=== PATIENT | female | born 1990 | race Caucasian/White ===

== ENCOUNTER 2017-03-10 17:29 | Emergency (ER) | payer OTHER ==
[~2017-03-10] VITALS: Ht 182.9 cm; Wt 144.7 kg
[2017-03-10 19:51] VITALS: BP 143/83
== END 2017-03-10 19:51 | disposition home or self-care (01) ==
LOC: ED 17:29
DX: L23.3 Allergic contact dermatitis due to drugs in contact with skin (principal); L03.211 Cellulitis of face; T49.4X5A Adverse effect of keratolytics, keratoplastics, and other hair treatment drugs and preparations, initial encounter; Y92.89 Other specified places as the place of occurrence of the external cause

== ENCOUNTER 2017-03-19 22:22 | Emergency (ER) | payer OTHER ==
[2017-03-20 02:40] LABS: PLATELET COUNT 358 x10^3mcL (130-400); RED CELL DISTRIBUTION WIDTH 12.2 % (11.5-14.5)
[2017-03-20 02:44] LABS: BASOPHIL % 2.2 % (0-2)
[2017-03-20 02:57] LABS: CARBON DIOXIDE 25.7 mmol/L (21-32); CHLORIDE SERUM 104 mmol/L (98-107); CREATININE SERUM 0.7 mg/dL (0.6-1.0); GFR1 > 60 mL/min; GLUCOSE SERUM 92 mg/dL (74-106); POTASSIUM SERUM 3.6 mmol/L (3.5-5.1); SODIUM SERUM 139 mmol/L (136-145)
[2017-03-20 03:01] LABS: ALBUMIN 3.7 g/dL (3.4-5.0); ALKALINE PHOSPHATASE 84 U/L (46-116); ALT/SGPT 26 U/L (14-59); AST/SGOT 15 U/L (15-37); BILIRUBIN TOTAL 0.22 mg/dL (0.20-1.00); LIPASE 144 IU/L (73-393); TOTAL PROTEIN, SERUM 7.9 g/dL (6.4-8.2)
[2017-03-20 03:21] VITALS: BP 132/72
== END 2017-03-20 03:21 | disposition home or self-care (01) ==
LOC: ED 22:22
PROVIDERS: Emergency Medicine
DX: R19.7 Diarrhea, unspecified (principal); R10.84 Generalized abdominal pain; R11.0 Nausea; Z79.1 Long term (current) use of non-steroidal anti-inflammatories (NSAID); Z79.899 Other long term (current) drug therapy
CPT/HCPCS: 36415; J0500; Q0162

== ENCOUNTER 2017-05-22 15:32 | Emergency (ER) | payer OTHER ==
[2017-05-22 18:00] VITALS: BP 128/75
== END 2017-05-22 18:00 | disposition home or self-care (01) ==
LOC: ED 15:32
DX: J02.9 Acute pharyngitis, unspecified (principal)
CPT/HCPCS: J1100

== ENCOUNTER 2017-10-23 08:00 | Emergency (ER) | payer OTHER ==
[~2017-10-23] VITALS: Ht 182.9 cm; Wt 137.4 kg
[2017-10-23 09:30] VITALS: BP 130/76
== END 2017-10-23 09:30 | disposition home or self-care (01) ==
LOC: ED 08:00
DX: J03.90 Acute tonsillitis, unspecified (principal); E66.9 Obesity, unspecified
CPT/HCPCS: J0696; J1100; J2001

== ENCOUNTER 2017-11-06 18:59 | Emergency (ER) | payer OTHER ==
[~2017-11-06] VITALS: Ht 182.9 cm; Wt 138.3 kg
[2017-11-06 19:10] VITALS: BP 133/86; Ht 182.9 cm; Wt 138.3 kg
== END 2017-11-06 20:45 | disposition home or self-care (01) ==
LOC: ED 18:59
DX: J06.9 Acute upper respiratory infection, unspecified (principal)
CPT/HCPCS: J7613; J7644

== ENCOUNTER 2017-11-17 08:14 | Emergency (ER) | payer OTHER ==
[~2017-11-17] VITALS: Ht 182.9 cm; Wt 140.2 kg
[2017-11-17 08:20] VITALS: Ht 182.9 cm; Wt 140.2 kg
[2017-11-17 08:52] LABS: BASOPHIL % 0.4 % (0-2); RED CELL DISTRIBUTION WIDTH 12.6 % (11.5-14.5)
[2017-11-17 08:53] LABS: PLATELET COUNT 436 x10^3mcL (130-400)
[2017-11-17 09:04] LABS: CALCIUM 8.5 mg/dL (8.5-10.1); CARBON DIOXIDE 25.2 mmol/L (21-32); CHLORIDE SERUM 106 mmol/L (98-107); CREATININE SERUM 0.6 mg/dL (0.6-1.0); GFR1 > 60 mL/min; GLUCOSE SERUM 101 mg/dL (74-106); POTASSIUM SERUM 4.4 mmol/L (3.5-5.1); SODIUM SERUM 140 mmol/L (136-145)
[2017-11-17 09:20] LABS: ALKALINE PHOSPHATASE 86 U/L (46-116); ALT/SGPT 29 U/L (14-59); AST/SGOT 16 U/L (15-37); BILIRUBIN TOTAL 0.18 mg/dL (0.20-1.00); TOTAL PROTEIN, SERUM 7.2 g/dL (6.4-8.2)
[2017-11-17 09:24] LABS: ALBUMIN 3.3 g/dL (3.4-5.0)
[2017-11-17 10:20] VITALS: BP 145/82
== END 2017-11-17 10:21 | disposition home or self-care (01) ==
LOC: ED 08:14
PROVIDERS: Emergency Medicine
DX: R53.1 Weakness (principal); J02.9 Acute pharyngitis, unspecified
CPT/HCPCS: 36415; 86308; J1885; Q0092; Q0162

== ENCOUNTER 2018-01-27 08:44 | Emergency (ER) | payer OTHER ==
[~2018-01-27] VITALS: Ht 182.9 cm; Wt 146.7 kg
[2018-01-27 08:48] VITALS: Ht 182.9 cm; Wt 146.7 kg
[2018-01-27 10:45] LABS: BASOPHIL % 0.7 % (0-2); CARBON DIOXIDE 24.4 mmol/L (21-32); CHLORIDE SERUM 108 mmol/L (98-107); CREATININE SERUM 0.6 mg/dL (0.6-1.0); GFR1 > 60 mL/min; GLUCOSE SERUM 87 mg/dL (74-106); PLATELET COUNT 348 x10^3mcL (130-400); POTASSIUM SERUM 4.1 mmol/L (3.5-5.1); RED CELL DISTRIBUTION WIDTH 13.7 % (11.5-14.5); SODIUM SERUM 138 mmol/L (136-145)
[2018-01-27 13:11] VITALS: BP 151/94
== END 2018-01-27 13:11 | disposition home or self-care (01) ==
LOC: ED 08:44
PROVIDERS: Emergency Medicine
DX: N93.8 Other specified abnormal uterine and vaginal bleeding (principal)
CPT/HCPCS: 36415

== ENCOUNTER 2018-10-12 17:19 | Emergency (ER) | payer OTHER ==
[~2018-10-12] VITALS: Ht 182.9 cm; Wt 159.2 kg
[2018-10-12 17:23] VITALS: Ht 182.9 cm; Wt 159.2 kg
[2018-10-12 19:31] VITALS: BP 127/64
== END 2018-10-12 19:31 | disposition home or self-care (01) ==
LOC: ED 17:19
DX: L03.012 Cellulitis of left finger (principal)
CPT/HCPCS: J1885